=== PATIENT | male | born 1975 | race Two or more races ===

== ENCOUNTER → 2022-11-03 06:00 | Outpatient (CLI) | payer OTHER ==
[~2022-11-03] VITALS: Ht 170.2 cm; Wt 81.6 kg
[~2022-11-03 06:00] MED LIST: GEMFIBROZIL600 MG PO; KETO10TA2 PO; LIPITOR PO
[2022-11-03 09:28] LABS: HEMATOCRIT 46.9 % (39.0-48.0); HEMOGLOBIN 16.4 g/dL (13-16.00); MEAN CELL VOLUME 90.5 fL (80.0-100.00); MEAN CORPUSCULAR HEMOGLOBIN 31.7 pg (27.00-32.0); PLATELET COUNT 168 K/uL (150-450); RED BLOOD COUNT 5.19 M/uL (4.00-6.00); RED CELL DISTRIBUTION WIDTH 13.7 % (11.5-14.5); URINE APPEARANCE Clear; URINE BILIRRUBIN Negative (NEGATIVE); URINE BLOOD Negative; URINE COLOR Yellow; URINE GLUCOSE Negative (NEGATIVE); URINE LEUKOCYTE Negative; URINE NITRATE Negative; URINE PROTEIN Negative (NEGATIVE); URINE UROBILINOGEN 0.2 E.U./dl
[2022-11-03 09:34] LABS: URINE WBC 2.9 uL (0.0-23.2)
[2022-11-03 09:38] LABS: URINE BACTERIA 2.4 uL (0.0-1933); URINE EPITHELIAL CELLS 1.2 uL (0.0-38.8); URINE RBC 1.1 uL (0.0-20.8)
[2022-11-03 09:57] LABS: INR 1.01; PARTIAL THROMBOPLASTIN TIME 25.8 SECONDS (22.0-34.0); PROTHROMBIN TIME 10.6 SECONDS (9.0-11.5)
[2022-11-03 10:00] LABS: ALBUMIN 4.7 gm/dL (3.4-5.0); BILIRUBIN TOTAL 0.41 mg/dL (0.3-1.2); CALCIUM 9.6 mg/dL (8.5-10.1); CREATININE SERUM 1.32 mg/dL (0.70-1.30); GFR 58.39; GLOBULINA 3.5 G/DL (2.4-3.5); POTASSIUM 3.64 mEq/L (3.5-5.1); TOTAL PROTEIN 8.2 gm/dL (6.4-8.2)
== END | disposition home or self-care (01) ==
LOC: LAB 06:00 → ADM 10:00 → EDSTATUS 11-09 10:00 → CIR.AMB 11-09 10:00
PROVIDERS: ATTEND Surgery
DX: Z01.811 Encounter for preprocedural respiratory examination (principal); Z01.812 Encounter for preprocedural laboratory examination; Z01.810 Encounter for preprocedural cardiovascular examination; K42.1 Umbilical hernia with gangrene

== ENCOUNTER 2023-11-24 07:50 | Outpatient (CLI) | payer OTHER ==
[2023-11-24 08:31] LABS: PH,URINE 5.5 (5.0-8.0); URINE APPEARANCE Clear; URINE BILIRRUBIN Negative (NEGATIVE); URINE BLOOD Negative; URINE COLOR Yellow; URINE GLUCOSE Negative (NEGATIVE); URINE KETONE Negative (NEGATIVE); URINE LEUKOCYTE Negative; URINE NITRATE Negative; URINE PROTEIN Negative (NEGATIVE); URINE UROBILINOGEN 0.2 E.U./dl
[2023-11-24 08:32] LABS: URINE WBC 2.4 uL (0.0-23.2)
[2023-11-24 08:46] LABS: HEMATOCRIT 42.4 % (39.0-48.0); HEMOGLOBIN 14.5 g/dL (13-16.00); MEAN CELL VOLUME 93.1 fL (80.0-100.00); MEAN CORPUSCULAR HEMOGLOBIN 31.9 pg (27.00-32.0); MEAN CORPUSCULAR HGB CONC 34.3 g/dl (32.0-36.0); PLATELET COUNT 175 K/uL (150-450); RED BLOOD COUNT 4.55 M/uL (4.00-6.00); RED CELL DISTRIBUTION WIDTH 13.7 % (11.5-14.5)
[2023-11-24 09:02] LABS: URINE BACTERIA 3.7 uL (0.0-1933); URINE EPITHELIAL CELLS 1.2 uL (0.0-38.8); URINE RBC 0.7 uL (0.0-20.8)
[2023-11-24 09:28] LABS: ALBUMIN 4.5 gm/dL (3.4-5.0); BILIRUBIN TOTAL 0.4 mg/dL (0.3-1.2); CHOL HDL RATIO 2.5 (0-5.0); CREATININE SERUM 1.29 mg/dL (0.70-1.30); GFR 59.45; GLOBULINA 3.1 G/DL (2.4-3.5); POTASSIUM 3.74 mEq/L (3.5-5.1); PROSTATIC SPECIFIC ANTIGEN 0.561 NG/ML (0.010-4.00); TOTAL PROTEIN 7.6 gm/dL (6.4-8.2); TSH 0.74 uIU/mL (0.358-3.74)
== END 2023-11-24 07:55 | disposition home or self-care (01) ==
LOC: LAB 07:50
PROVIDERS: ATTEND Student in an Organized Health Care Education/Training Program
DX: E11.65 Type 2 diabetes mellitus with hyperglycemia (principal); I11.9 Hypertensive heart disease without heart failure; N40.0 Benign prostatic hyperplasia without lower urinary tract symptoms; N39.0 Urinary tract infection, site not specified; E55.9 Vitamin D deficiency, unspecified; E03.9 Hypothyroidism, unspecified

== ENCOUNTER 2024-01-10 07:00 | Outpatient (CLI) | payer OTHER ==
[2024-01-10 07:37] LABS: HEMATOCRIT 43.8 % (39.0-48.0); HEMOGLOBIN 14.9 g/dL (13-16.00); MEAN CELL VOLUME 92.4 fL (80.0-100.00); MEAN CORPUSCULAR HEMOGLOBIN 31.4 pg (27.00-32.0); PLATELET COUNT 179 K/uL (150-450); RED BLOOD COUNT 4.74 M/uL (4.00-6.00); RED CELL DISTRIBUTION WIDTH 12.9 % (11.5-14.5)
[2024-01-10 08:14] LABS: PH,URINE 5.5 (5.0-8.0); URINE APPEARANCE Clear; URINE BILIRRUBIN Negative (NEGATIVE); URINE BLOOD Negative; URINE COLOR Yellow; URINE GLUCOSE Negative (NEGATIVE); URINE KETONE Negative (NEGATIVE); URINE LEUKOCYTE Negative; URINE NITRATE Negative; URINE PROTEIN Trace (NEGATIVE); URINE UROBILINOGEN 0.2 E.U./dl
[2024-01-10 08:16] LABS: URINE BACTERIA 21.4 uL (0.0-1933); URINE CAST 1.98 uL (0.0-1.40); URINE EPITHELIAL CELLS 6.4 uL (0.0-38.8); URINE WBC 6.9 uL (0.0-23.2)
[2024-01-10 08:48] LABS: ALBUMIN 4.5 gm/dL (3.4-5.0); BILIRUBIN TOTAL 0.48 mg/dL (0.3-1.2); CALCIUM 9.4 mg/dL (8.5-10.1); CHOL HDL RATIO 2.3 (0-5.0); CREATININE SERUM 1.45 mg/dL (0.70-1.30); GFR 51.94; GLOBULINA 3.1 G/DL (2.4-3.5); POTASSIUM 4.12 mEq/L (3.5-5.1); PROSTATIC SPECIFIC ANTIGEN 0.635 NG/ML (0.010-4.00); TOTAL PROTEIN 7.6 gm/dL (6.4-8.2); TSH 1.05 uIU/mL (0.358-3.74)
[2024-01-10 09:18] LABS: URINE RBC 0.7 uL (0.0-20.8)
== END 2024-01-10 07:01 | disposition home or self-care (01) ==
LOC: LAB 07:00
PROVIDERS: ATTEND Student in an Organized Health Care Education/Training Program
DX: E11.65 Type 2 diabetes mellitus with hyperglycemia (principal); I11.9 Hypertensive heart disease without heart failure; N40.0 Benign prostatic hyperplasia without lower urinary tract symptoms; E78.5 Hyperlipidemia, unspecified; N39.0 Urinary tract infection, site not specified; E55.9 Vitamin D deficiency, unspecified; E21.3 Hyperparathyroidism, unspecified; E03.9 Hypothyroidism, unspecified

== ENCOUNTER 2024-01-22 08:51 | Emergency (ER) | payer OTHER ==
[~2024-01-22] VITALS: Ht 170.2 cm; Wt 83.9 kg
[2024-01-22 12:22] LABS: PH,URINE 5.5 (5.0-8.0); URINE APPEARANCE Clear; URINE BILIRRUBIN Negative (NEGATIVE); URINE BLOOD Negative; URINE COLOR Yellow; URINE GLUCOSE Negative (NEGATIVE); URINE KETONE Trace (NEGATIVE); URINE LEUKOCYTE Negative; URINE NITRATE Negative; URINE PROTEIN Negative (NEGATIVE); URINE UROBILINOGEN 0.2 E.U./dl
[2024-01-22 12:25] LABS: URINE BACTERIA 6.1 uL (0.0-1933); URINE EPITHELIAL CELLS 9.9 uL (0.0-38.8); URINE WBC 4.4 uL (0.0-23.2)
[2024-01-22 12:27] LABS: HEMATOCRIT 46.3 % (39.0-48.0); HEMOGLOBIN 15.6 g/dL (13-16.00); MEAN CELL VOLUME 92.2 fL (80.0-100.00); MEAN CORPUSCULAR HEMOGLOBIN 31.1 pg (27.00-32.0); MEAN CORPUSCULAR HGB CONC 33.7 g/dl (32.0-36.0); PLATELET COUNT 170 K/uL (150-450); RED BLOOD COUNT 5.02 M/uL (4.00-6.00); RED CELL DISTRIBUTION WIDTH 13.3 % (11.5-14.5)
[2024-01-22 12:36] LABS: URINE CAST 0.88 uL (0.0-1.40); URINE RBC 1.1 uL (0.0-20.8)
[2024-01-22 12:54] LABS: ALBUMIN 4.7 gm/dL (3.4-5.0); BILIRUBIN TOTAL 0.4 mg/dL (0.3-1.2); CREATININE SERUM 1.55 mg/dL (0.70-1.30); GFR 48.09; GLOBULINA 3.4 G/DL (2.4-3.5); POTASSIUM 3.94 mEq/L (3.5-5.1); TOTAL PROTEIN 8.1 gm/dL (6.4-8.2)
[2024-01-22] MEDS ORDERED: KETOROLAC TROMETHAMINE 60 MG VIAL IM ONE (13:45)
== END 2024-01-22 13:53 ==
LOC: ER 08:53
PROVIDERS: General Practice
DX: J10.1 Influenza due to other identified influenza virus with other respiratory manifestations (principal); I10 Essential (primary) hypertension; E13.9 Other specified diabetes mellitus without complications; Z20.822 Contact with and (suspected) exposure to COVID-19; Z91.048 Other nonmedicinal substance allergy status

== ENCOUNTER 2024-01-22 13:58 | Outpatient (CLI) | payer OTHER | END 2024-01-22 14:00 | disposition home or self-care (01) | LOC: LAB 13:58 | PROVIDERS: ATTEND General Practice | DX: A49.3 Mycoplasma infection, unspecified site (principal) ==

== ENCOUNTER 2024-03-31 06:03 | Outpatient (CLI) | payer OTHER | END 2024-03-31 06:13 | disposition home or self-care (01) | LOC: LAB 06:03 | DX: M06.08 Rheumatoid arthritis without rheumatoid factor, vertebrae (principal); M32.9 Systemic lupus erythematosus, unspecified ==

== ENCOUNTER → 2024-04-10 06:11 | Outpatient (CLI) | payer OTHER ==
[2024-04-10 07:28] LABS: HEMATOCRIT 44.6 % (39.0-48.0); HEMOGLOBIN 14.7 g/dL (13-16.00); MEAN CELL VOLUME 93.3 fL (80.0-100.00); MEAN CORPUSCULAR HEMOGLOBIN 30.9 pg (27.00-32.0); MEAN CORPUSCULAR HGB CONC 33.1 g/dl (32.0-36.0); PLATELET COUNT 175 K/uL (150-450); RED BLOOD COUNT 4.77 M/uL (4.00-6.00)
[2024-04-10 07:30] LABS: PH,URINE 5.5 (5.0-8.0); URINE APPEARANCE Clear; URINE BILIRRUBIN Negative (NEGATIVE); URINE BLOOD Negative; URINE COLOR Yellow; URINE GLUCOSE Negative (NEGATIVE); URINE KETONE Negative (NEGATIVE); URINE LEUKOCYTE Negative; URINE NITRATE Negative; URINE PROTEIN Negative (NEGATIVE); URINE UROBILINOGEN 0.2 E.U./dl
[2024-04-10 07:35] LABS: URINE BACTERIA 1.2 uL (0.0-1933); URINE EPITHELIAL CELLS 0.9 uL (0.0-38.8); URINE RBC 0.4 uL (0.0-20.8); URINE WBC 1.5 uL (0.0-23.2)
[2024-04-10 08:17] LABS: ALBUMIN 3.9 gm/dL (3.4-5.0); BILIRUBIN TOTAL 0.5 mg/dL (0.3-1.2); CALCIUM 8.6 mg/dL (8.5-10.1); CHOL HDL RATIO 2.8 (0-5.0); CREATININE SERUM 1.12 mg/dL (0.70-1.30); GFR 69.98; GLOBULINA 3.2 G/DL (2.4-3.5); POTASSIUM 3.56 mEq/L (3.5-5.1); PROSTATIC SPECIFIC ANTIGEN 0.524 NG/ML (0.010-4.00); TOTAL PROTEIN 7.1 gm/dL (6.4-8.2); TSH 1.38 uIU/mL (0.358-3.74)
== END | disposition home or self-care (01) ==
LOC: LAB 06:11
PROVIDERS: ATTEND Student in an Organized Health Care Education/Training Program
DX: E11.65 Type 2 diabetes mellitus with hyperglycemia (principal); I11.9 Hypertensive heart disease without heart failure; N40.0 Benign prostatic hyperplasia without lower urinary tract symptoms; E78.5 Hyperlipidemia, unspecified; N39.0 Urinary tract infection, site not specified; E55.9 Vitamin D deficiency, unspecified; E21.3 Hyperparathyroidism, unspecified; E03.9 Hypothyroidism, unspecified

== ENCOUNTER 2024-05-02 05:31 | Emergency (ER) | payer OTHER ==
[~2024-05-02] VITALS: Ht 172.7 cm; Wt 86.2 kg
[2024-05-02] MEDS ORDERED: GLUMETZA500 MG (05:50)
[2024-05-02] MEDS ORDERED: ATORVASTATIN CA10 MG PO (05:50)
[2024-05-02] MEDS ORDERED: ALLEGRA ALLERG180 MG (05:51)
[2024-05-02] MEDS ORDERED: HYDROXYZIN10 MG/5 ML PO (05:51)
[2024-05-02] MEDS ORDERED: ZYRTEC10 M3 PO (05:51)
[2024-05-02 08:56] LABS: HEMATOCRIT 47.5 % (39.0-48.0); MEAN CELL VOLUME 92.4 fL (80.0-100.00); MEAN CORPUSCULAR HGB CONC 33.6 g/dl (32.0-36.0); PLATELET COUNT 208 K/uL (150-450); RED BLOOD COUNT 5.14 M/uL (4.00-6.00); RED CELL DISTRIBUTION WIDTH 13.6 % (11.5-14.5)
[2024-05-02 09:09] LABS: URINE APPEARANCE Clear; URINE BILIRRUBIN Negative (NEGATIVE); URINE BLOOD Moderate; URINE COLOR Yellow; URINE GLUCOSE Negative (NEGATIVE); URINE KETONE Negative (NEGATIVE); URINE LEUKOCYTE Negative; URINE NITRATE Negative; URINE PROTEIN Negative (NEGATIVE); URINE UROBILINOGEN 0.2 E.U./dl
[2024-05-02 09:10] LABS: URINE BACTERIA 13.4 uL (0.0-1933); URINE EPITHELIAL CELLS 2.6 uL (0.0-38.8); URINE WBC 2.3 uL (0.0-23.2)
[2024-05-02 09:14] LABS: URINE CAST 0.29 uL (0.0-1.40)
[2024-05-02 10:26] LABS: CALCIUM 9.5 mg/dL (8.5-10.1); CREATININE SERUM 1.11 mg/dL (0.70-1.30); GFR 70.7; POTASSIUM 3.82 mEq/L (3.5-5.1)
== END 2024-05-02 12:50 | disposition home or self-care (01) ==
LOC: ER 05:33
PROVIDERS: General Practice
DX: R30.0 Dysuria (principal); M54.50 Low back pain, unspecified; E11.9 Type 2 diabetes mellitus without complications; I10 Essential (primary) hypertension; Z79.84 Long term (current) use of oral hypoglycemic drugs

== ENCOUNTER → 2024-05-11 06:10 | Outpatient (CLI) | payer OTHER ==
[~2024-05-11 06:10] MED LIST changes: +ALLEGRA ALLERG180 MG; +ATORVASTATIN CA10 MG PO; +GLUMETZA500 MG; +HYDROXYZIN10 MG/5 ML PO; +ZYRTEC10 M3 PO
[2024-05-12 09:07] LABS: free psa 0.25 ng/mL; total psa 0.5 ng/mL (0.0-4.0)
== END | disposition home or self-care (01) ==
LOC: LAB 06:10
DX: N40.0 Benign prostatic hyperplasia without lower urinary tract symptoms (principal)

== ENCOUNTER 2024-05-11 07:20 | Outpatient (CLI) | payer OTHER | END 2024-05-11 07:25 | disposition home or self-care (01) | LOC: SONOGRAMA 07:20 | DX: N40.0 Benign prostatic hyperplasia without lower urinary tract symptoms (principal); C61 Malignant neoplasm of prostate ==

== ENCOUNTER 2024-06-15 17:11 | Emergency (ER) | payer OTHER ==
[~2024-06-15] VITALS: Ht 170.2 cm; Wt 88.0 kg
[2024-06-15] MEDS ORDERED: KETOROLAC TROMETHAMINE 30 MG VIAL IV ONE (19:30)
[2024-06-15] MEDS ORDERED: FAMOtidine 10 MG/ML (4ML VIAL) IV ONE (19:30)
[2024-06-15] MEDS ORDERED: 0.9 % SODIUM CHLORIDE 1,000 ML IV ONE (19:30)
[2024-06-15] MEDS ORDERED: KETOROLAC TROMETHAMINE 30 MG VIAL ONE (19:34)
[2024-06-15] MEDS ORDERED: FAMOTIDINE/PF 20 MG/2 ML VIAL ONE (19:35)
[2024-06-15 20:27] LABS: PARTIAL THROMBOPLASTIN TIME 25.9 SECONDS (22.0-34.0); PROTHROMBIN TIME 10.9 SECONDS (9.0-11.5)
[2024-06-15 20:32] LABS: HEMATOCRIT 43.5 % (39.0-48.0); MEAN CELL VOLUME 89.8 fL (80.0-100.00); MEAN CORPUSCULAR HGB CONC 34.6 g/dl (32.0-36.0); PLATELET COUNT 180 K/uL (150-450); RED BLOOD COUNT 4.85 M/uL (4.00-6.00); RED CELL DISTRIBUTION WIDTH 12.7 % (11.5-14.5)
[2024-06-15 20:35] LABS: ALBUMIN 3.8 gm/dL (3.4-5.0); BILIRUBIN TOTAL 0.49 mg/dL (0.3-1.2); CALCIUM 8.6 mg/dL (8.5-10.1); CREATININE SERUM 1.46 mg/dL (0.70-1.30); GFR 51.53; GLOBULINA 3.3 G/DL (2.4-3.5); POTASSIUM 3.58 mEq/L (3.5-5.1); TOTAL PROTEIN 7.1 gm/dL (6.4-8.2)
[2024-06-15 21:32] LABS: URINE APPEARANCE Clear; URINE BILIRRUBIN Negative (NEGATIVE); URINE BLOOD Negative; URINE COLOR Yellow; URINE GLUCOSE Negative (NEGATIVE); URINE KETONE Negative (NEGATIVE); URINE LEUKOCYTE Negative; URINE NITRATE Negative; URINE PROTEIN Negative (NEGATIVE); URINE UROBILINOGEN 0.2 E.U./dl
[2024-06-15 21:36] LABS: URINE BACTERIA 6.1 uL (0.0-1933)
[2024-06-15 21:45] LABS: URINE CAST 0.14 uL (0.0-1.40); URINE EPITHELIAL CELLS 0.3 uL (0.0-38.8); URINE RBC 0.5 uL (0.0-20.8); URINE WBC 1.2 uL (0.0-23.2)
[2024-06-15] MEDS ORDERED: NORFLEX100MG PO (22:16)
[2024-06-15] MEDS ORDERED: CIPRO500 MG PO (22:16)
[2024-06-15] MEDS ORDERED: PEPCID AC20 MG PO (22:16)
[2024-06-15] MEDS ORDERED: METRONIDAZOLE500 MG PO (22:16)
[2024-06-15] MEDS ORDERED: PROBIOTIC1 EAC2 PO (22:17)
== END 2024-06-15 22:27 | disposition home or self-care (01) ==
LOC: ER 17:11
PROVIDERS: General Practice
DX: K57.32 Diverticulitis of large intestine without perforation or abscess without bleeding (principal); R10.32 Left lower quadrant pain; E11.9 Type 2 diabetes mellitus without complications; Z79.84 Long term (current) use of oral hypoglycemic drugs; K40.90 Unilateral inguinal hernia, without obstruction or gangrene, not specified as recurrent
CPT/HCPCS: 36415; 74177; Q9965

== ENCOUNTER 2024-07-15 10:11 | Outpatient (CLI) | payer OTHER ==
[~2024-07-15 10:11] MED LIST changes: +CIPRO500 MG PO; +METRONIDAZOLE500 MG PO; +NORFLEX100MG PO; +PEPCID AC20 MG PO; +PROBIOTIC1 EAC2 PO
[2024-07-15 10:40] LABS: BASO % 0.7 % (0.1-1.2); EOS # 0.09 (0.04-0.54); EOS % 2.1 % (0.7-7.0); HEMATOCRIT 44.6 % (40.1-51.0); HEMOGLOBIN 15.2 g/dL (13.7-17.5); LYMPH # 1.44 (1.18-3.74); LYMPH % 34.1 % (19.3-53.1); MEAN CORPUSCULAR HEMOGLOBIN 29.9 pg (25.6-32.2); MONO # 0.58 (0.24-0.82); NEUT # 2.07 (1.56-6.13); NEUT % 49.2 % (34.0-71.1); PLATELET COUNT 185 K/uL (163-369); RED BLOOD COUNT 5.09 M/uL (4.63-6.08); RED CELL DISTRIBUTION WIDTH 12.6 % (11.6-14.4)
[2024-07-15 10:48] LABS: MONO % 13.7 % (4.7-12.5)
[2024-07-15 10:49] LABS: URINE APPEARANCE Clear; URINE BILIRRUBIN Negative (NEGATIVE); URINE BLOOD Negative; URINE COLOR Dark Yellow; URINE GLUCOSE Negative (NEGATIVE); URINE KETONE Negative (NEGATIVE); URINE LEUKOCYTE Negative; URINE NITRATE Negative; URINE PROTEIN Negative (NEGATIVE); URINE UROBILINOGEN 0.2 E.U./dl
[2024-07-15 10:52] LABS: URINE BACTERIA 75.8 uL (0.0-1933); URINE WBC 2.9 uL (0.0-23.2)
[2024-07-15 11:03] LABS: URINE EPITHELIAL CELLS 0.4 uL (0.0-38.8); URINE RBC 0.7 uL (0.0-20.8)
[2024-07-15 11:28] LABS: ALBUMIN 4.4 gm/dL (3.4-5.0); BILIRUBIN TOTAL 0.59 mg/dL (0.3-1.2); CALCIUM 9.4 mg/dL (8.5-10.1); CREATININE SERUM 1.3 mg/dL (0.70-1.30); GFR 58.92; GLOBULINA 3.4 G/DL (2.4-3.5); POTASSIUM 4.18 mEq/L (3.5-5.1); PROSTATIC SPECIFIC ANTIGEN 0.547 NG/ML (0.010-4.00); TOTAL PROTEIN 7.8 gm/dL (6.4-8.2); TSH 0.855 uIU/mL (0.358-3.74)
== END 2024-07-15 10:12 | disposition home or self-care (01) ==
LOC: LAB 10:11
PROVIDERS: ATTEND Student in an Organized Health Care Education/Training Program
DX: N39.0 Urinary tract infection, site not specified (principal); N40.0 Benign prostatic hyperplasia without lower urinary tract symptoms; E78.5 Hyperlipidemia, unspecified; I11.9 Hypertensive heart disease without heart failure; E11.65 Type 2 diabetes mellitus with hyperglycemia; E03.9 Hypothyroidism, unspecified

== ENCOUNTER 2024-11-07 08:44 | Outpatient (CLI) | payer OTHER ==
[~2024-11-07 08:44] MED LIST changes: +PAXLOVID 300-11 EAC1 PO; +TUSNEL LIQUID178 ML PO
[2024-11-07 09:27] LABS: BASO % 0.6 % (0.1-1.2); EOS # 0.25 (0.04-0.54); EOS % 4.7 % (0.7-7.0); LYMPH # 1.88 (1.18-3.74); LYMPH % 35.3 % (19.3-53.1); MEAN PLATELET VOLUME 9.50 fl (9.4-12.4); MONO # 0.72 (0.24-0.82); NEUT # 2.43 (1.56-6.13); NEUT % 45.5 % (34.0-71.1); RED CELL DISTRIBUTION WIDTH 13.3 % (11.6-14.4)
[2024-11-07 09:30] LABS: URINE APPEARANCE Clear; URINE BILIRRUBIN Negative (NEGATIVE); URINE BLOOD Negative; URINE COLOR Yellow; URINE GLUCOSE Negative (NEGATIVE); URINE KETONE Negative (NEGATIVE); URINE LEUKOCYTE Negative; URINE NITRATE Negative; URINE PROTEIN Negative (NEGATIVE); URINE UROBILINOGEN 0.2 E.U./dl
[2024-11-07 09:32] LABS: MONO % 13.5 % (4.7-12.5); URINE BACTERIA 43.2 uL (0.0-1933); URINE EPITHELIAL CELLS 1.6 uL (0.0-38.8); URINE WBC 5.2 uL (0.0-23.2)
[2024-11-07 09:37] LABS: URINE CAST 0.00 uL (0.0-1.40); URINE RBC 0.8 uL (0.0-20.8)
[2024-11-07 10:33] LABS: ALT/SGPT 48.0 U/L (12-78); AST/SGOT 27.0 U/L (15-37); BILIRUBIN TOTAL 0.38 mg/dL (0.3-1.2); BUN CREA RATIO 17.0 (7.0-25.0); CHOL HDL RATIO 2.1 (0-5.0); CREATININE SERUM 1.26 mg/dL (0.70-1.30); GFR 61.08; GLOBULINA 3.3 G/DL (2.4-3.5); GLUCOSE FASTING 99.0 mg/dL (65-100); HDL 58.0 mg/dl (40-60); LDL 47.0 mg/dl (0-130); OSMOLALITY SERUM 286.0 MOSM/KG (275-295); PROSTATIC SPECIFIC ANTIGEN 1.17 NG/ML (0.010-4.00); TSH 0.799 uIU/mL (0.358-3.74); VLDL 17.0 (0-39)
[2024-11-07 11:09] LABS: FOLIC ACID > 20.00 ng/ml (4.78-20); VITAMIN D3 25 HYDROXY 50.23 ng/ml (30-120)
== END 2024-11-07 08:48 | disposition home or self-care (01) ==
LOC: LAB 08:44
PROVIDERS: ATTEND Student in an Organized Health Care Education/Training Program
DX: E11.65 Type 2 diabetes mellitus with hyperglycemia (principal); I11.9 Hypertensive heart disease without heart failure; N40.0 Benign prostatic hyperplasia without lower urinary tract symptoms; C61 Malignant neoplasm of prostate; E78.5 Hyperlipidemia, unspecified; N39.0 Urinary tract infection, site not specified; E55.9 Vitamin D deficiency, unspecified; E21.3 Hyperparathyroidism, unspecified; E03.9 Hypothyroidism, unspecified; D64.9 Anemia, unspecified

== ENCOUNTER 2024-12-18 05:05 | Emergency (ER) | payer OTHER ==
[~2024-12-18] VITALS: Ht 170.2 cm; Wt 82.6 kg
[2024-12-18] MEDS ORDERED: CETIRIZINE HCL 5 MG/5 ML ML PO ONE (07:30)
[2024-12-18] MEDS ORDERED: BENZONATATE 200 MG CAPSULE PO ONE (07:30)
[2024-12-18] MEDS ORDERED: KETOROLAC TROMETHAMINE 60 MG VIAL IM ONE ×2 (07:30→07:39)
[2024-12-18] MEDS ORDERED: CEFTRIAXONE SODIUM 1,000 MG VIAL IM ONE (07:30)
[2024-12-18] MEDS ORDERED: CETIRIZINE HCL 5MG/5ML BLIST.PACK PO ONE (07:39)
[2024-12-18] MEDS ORDERED: CEFTRIAXONE SODIUM 1,000 MG VIAL ONE (07:40)
[2024-12-18 08:28] LABS: BASO % 0.3 % (0.1-1.2); EOS # 0.24 (0.04-0.54); EOS % 2.2 % (0.7-7.0); LYMPH # 2.16 (1.18-3.74); LYMPH % 19.8 % (19.3-53.1); MEAN PLATELET VOLUME 9.40 fl (9.4-12.4); MONO # 0.94 (0.24-0.82); MONO % 8.6 % (4.7-12.5); NEUT # 7.51 (1.56-6.13); NEUT % 68.7 % (34.0-71.1); RED CELL DISTRIBUTION WIDTH 13.3 % (11.6-14.4)
[2024-12-18 08:47] LABS: COVID-19 AG NEGATIVE (NEGATIVE)
[2024-12-18] MEDS ORDERED: BENZONATATE200 M1 PO (08:59)
[2024-12-18] MEDS ORDERED: AZITHROMYCIN500 MG PO (08:59)
[2024-12-18] MEDS ORDERED: LEVALBUTER0.63 MG/3 IH (08:59)
== END 2024-12-18 09:07 | disposition home or self-care (01) ==
LOC: ER 05:06
PROVIDERS: General Practice
DX: J00 Acute nasopharyngitis [common cold] (principal); I10 Essential (primary) hypertension; E11.9 Type 2 diabetes mellitus without complications; Z79.84 Long term (current) use of oral hypoglycemic drugs; Z20.822 Contact with and (suspected) exposure to COVID-19